=== PATIENT | male | born 1940 | race Caucasian/White ===

== ENCOUNTER 2016-05-27 12:41 | Emergency (ER) | payer OTHER ==
[~2016-05-27] VITALS: Ht 177.8 cm; Wt 72.8 kg
[2016-05-27] MEDS ORDERED: MOTRIN800 MG PO (16:12)
[2016-05-27] MEDS ORDERED: NORCO 7.5/321 TABLET PO (16:12)
[2016-05-27] MEDS ORDERED: AUGMENTIN875 MG PO (16:12)
[2016-05-27 16:28] VITALS: BP 145/72
== END 2016-05-27 17:49 | disposition home or self-care (01) ==
LOC: EME 12:41
PROC: 3E0234Z Introduction of Serum, Toxoid and Vaccine into Muscle, Percutaneous Approach (ICD-10-PCS; principal; 2016-05-27)
DX: S60.471A Other superficial bite of left index finger, initial encounter (principal); L08.9 Local infection of the skin and subcutaneous tissue, unspecified; W54.0XXA Bitten by dog, initial encounter; Z23 Encounter for immunization
CPT/HCPCS: 73140; 99281; 99284